=== PATIENT | male | born 1950 | race Caucasian/White ===

== ENCOUNTER 2021-05-15 12:12 | Outpatient (CLI) | payer MEDICARE | END 2021-05-15 23:59 | disposition home or self-care (01) | LOC: CARD DIAG 12:12 | PROVIDERS: ATTEND Nurse Practitioner | DX: I35.1 Nonrheumatic aortic (valve) insufficiency (principal) | CPT/HCPCS: 93306 ==

== ENCOUNTER 2024-01-27 10:54 | Day surgery (SDC) | payer MEDICARE ==
[2024-01-23 09:59] LABS: BASOPHILS # (AUTO) 0.1 X10'3 (0-0.2); BASOPHILS % (AUTO) 0.4 % (0-1); EOSINOPHILS # (AUTO) 0.2 X10'3 (0-0.9); HEMOGLOBIN 15.1 g/dl (14.0-17.9); LYMPHOCYTES # (AUTO) 14.6 X10'3 (1.1-4.8); MONOCYTES # (AUTO) 0.5 X10'3 (0-0.9); RED CELL DISTRIBUTION WIDTH 13.8 % (11.5-14.5)
[2024-01-23 10:00] LABS: EOSINOPHILS % (AUTO) 1.1 % (0-6); HEMATOCRIT 45.8 % (42.0-52.0); LYMPHOCYTES % (AUTO) 76.7 % (21-51); MEAN CORPUSCULAR HEMOGLOBIN 31.1 PG (27.0-31.0); MEAN CORPUSCULAR VOLUME 94.3 FL (78-98); MEAN PLATELET VOLUME 8.3 FL (7.4-10.4); MONOCYTES % (AUTO) 2.5 % (2-12); NEUTROPHILS # (AUTO) 3.7 X10'3 (1.8-7.7); NEUTROPHILS % (AUTO) 19.3 % (42-75); PLATELET COUNT 206 X10'3 (140-440); RED BLOOD COUNT 4.85 X10'6 (4.70-6.10)
[2024-01-23 10:19] LABS: ALBUMIN 3.8 G/DL (3.4-5.0); ANION GAP 11 (8-16); BLOOD UREA NITROGEN 20 MG/DL (7-18); BUN/CREATININE RATIO 16.5 (10.0-20.0); CHLORIDE 107 MMOL/L (99-107); CREATININE 1.21 MG/DL (0.60-1.10); GLUCOSE 100 MG/DL (70-104); POTASSIUM 4.6 MMOL/L (3.5-5.1); SODIUM 144 MMOL/L (135-145); TOTAL CARBON DIOXIDE 26.4 MMOL/L (24-32); eGFR 59 ML/MIN
[2024-01-23 10:22] LABS: APTT 28 SECONDS (22-32); INR 1.1 INR; PROTHROMBIN TIME 11.4 SECONDS (9.0-12.0)
[2024-01-23 10:33] LABS: TOTAL CELLS COUNTED 100
[2024-01-23 10:34] LABS: PLATELET ESTIMATE NORMAL
[2024-01-27] VITALS (10 sets, daily range): BP systolic 111–145; BP diastolic 67–107; PULSE 41–94; RESP 13–15; TEMP 97.9; O2SAT 96–98
[~2024-01-27] VITALS: Ht 170.2 cm; Wt 139.4 kg
[2024-01-27] MEDS: normal saline 1000ml 1,000 ML IV SCH (11:15)
[2024-01-27] MEDS ORDERED: AREDS EYE VITAMIN (11:20)
[2024-01-27] MEDS ORDERED: APIX5TAB3 PO (11:20)
[2024-01-27] MEDS ORDERED: SOTA80TA73 PO (11:20)
[2024-01-27] MEDS ORDERED: ROSU5TAB43 PO (11:20)
[2024-01-27] MEDS ORDERED: LORA10TA7 PO (11:20)
[2024-01-27] MEDS ORDERED: MELO-102 PO (11:20)
[2024-01-27] MEDS ORDERED: MULT-227 PO (11:20)
[2024-01-27] MEDS ORDERED: OMEG-166 PO (11:20)
[2024-01-27] MEDS ORDERED: AMLO5TAB16 PO (11:20)
[2024-01-27] MEDS ORDERED: LOSA100T58 PO (11:20)
[2024-01-27] MEDS ORDERED: FLUT16SP BOTHNARES (11:20)
[2024-01-27] MEDS: fentaNYL/PF 50MCG/1 ML 2ML syringe IV ONE (12:53)
[2024-01-27] MEDS: MIDAZolam 1mg/ml 10ml vial IV ONE (12:53)
== END 2024-01-27 13:45 | disposition home or self-care (01) ==
LOC: SSTAY O 10:54
PROVIDERS: ATTEND Student in an Organized Health Care Education/Training Program
DX: I48.91 Unspecified atrial fibrillation (principal); I10 Essential (primary) hypertension; E78.00 Pure hypercholesterolemia, unspecified; G47.33 Obstructive sleep apnea (adult) (pediatric); Z85.46 Personal history of malignant neoplasm of prostate; Z79.01 Long term (current) use of anticoagulants; Z79.899 Other long term (current) drug therapy; Z88.0 Allergy status to penicillin; Z88.5 Allergy status to narcotic agent
CPT/HCPCS: 36415; 80048; 85025; 85610; 85730; 92960; 93005; J2250; J3010; J7030; Z7610; 85007

== ENCOUNTER 2024-06-22 08:38 | Day surgery (SDC) | payer MEDICARE ==
[~2024-06-22] VITALS: Ht 170.2 cm; Wt 136.0 kg
[~2024-06-22 08:38] MED LIST: AMLO5TAB16 PO; APIX5TAB3 PO; AREDS EYE VITAMIN; FLUT16SP BOTHNARES; LORA10TA7 PO; LOSA100T58 PO; MELO-102 PO; MULT-227 PO; OMEG-166 PO; ROSU5TAB51 PO; SOTA80TA73 PO
[2024-06-22 08:59] VITALS: BP 167/86; PULSE 50; RESP 12
[2024-06-22] MEDS ORDERED: simethicone 40mg/0.6ml oral drops 30ml ONE (09:38)
[2024-06-22 10:00] VITALS: BP 104/51; PULSE 42; RESP 16; O2SAT 96
[2024-06-22] MEDS ORDERED: propofol inj 20 ML IV ONE (10:09)
[2024-06-22 10:10] VITALS: BP 124/60; PULSE 45; RESP 18; O2SAT 98
[2024-06-22 10:20] VITALS: BP 131/60; PULSE 44; RESP 20; O2SAT 98
[2024-06-22 10:26] VITALS: BP 144/74; PULSE 45; RESP 18; O2SAT 98
== END 2024-06-22 10:35 | disposition home or self-care (01) ==
LOC: GI LAB 08:38
PROVIDERS: ATTEND Internal Medicine Gastroenterology
DX: Z12.11 Encounter for screening for malignant neoplasm of colon (principal); K57.30 Diverticulosis of large intestine without perforation or abscess without bleeding; K64.8 Other hemorrhoids; I10 Essential (primary) hypertension; I48.91 Unspecified atrial fibrillation; E66.9 Obesity, unspecified; G47.33 Obstructive sleep apnea (adult) (pediatric); Z87.891 Personal history of nicotine dependence; Z68.42 Body mass index [BMI] 45.0-49.9, adult; Z88.0 Allergy status to penicillin; Z88.5 Allergy status to narcotic agent
CPT/HCPCS: A4620; G0121; J2704; J7030; Z7512; 45378